=== PATIENT | male | born 2000 | race Caucasian/White ===

== ENCOUNTER 2019-03-09 17:17 | Emergency (ER) | payer BC, OTHER ==
[2019-03-09 17:58] VITALS: BP 132/81; PULSE 81; TEMP 97.6; BMI 22.4
[2019-03-09] MEDS ORDERED: AZITHROMYCIN 500 MG TABLET PO ONE (19:40)
[2019-03-09] MEDS ORDERED: AZITHROMYCIN 250 MG TABLET ONE (19:44)
--- NOTE | 2019-03-09 22:10 | PDOC ---
Documentation entered by Maddison Weinstein SCRIBE, acting as scribe for April Aguilar MD. April Aguilar MD: This documentation has been prepared by the daisyibe, Maddison Weinstein SCRIBE, under my direction and personally reviewed by me in its entirety. I confirm that the documentation accurately reflects all work, treatment, procedures, and medical decision making performed by me. History of Present Illness - General Chief Complaint: Non EmpBld/Body Flud Exposure Stated Complaint: "I need to be tested for STD" Time Seen by Provider: 03/09/19 19:18 History Source: Patient Exam Limitations: No Limitations - History of Present Illness Initial Comments: 03/09/19 20:06 The patient is a 18-year-old male with a past medical history significant for chlamydia who presents to the emergency department for STD testing. The patient reports he received an anonymous text today to get checked out for STDs. The patient denies any rashes, penile discharge/bleeding, joint or muscle pain, urinary frequency or urgency, dysuria, hematuria. The patient reports a recent history of chlamydia in August, was treated for it. The patient reports he has had multiple female sexual partners since August, and reports he uses a condomless than half of the time. Allergies: NKDA Social history: Marijuana use and alcohol use. Past History - Past Medical History Allergies/Adverse Reactions: Allergies Allergy/AdvReac Type Severity Reaction Status Date / Time No Known Allergies Allergy Verified 03/09/19 17:50 Home Medications: Ambulatory Orders NK [No Known Home Medication] 03/09/19 COPD: No Other medical history: denies - Psycho Social/Smoking Cessation Hx Smoking History: Never smoked Hx Alcohol Use: Yes (two times per week.) Drug/Substance Use Hx: Yes (MARIJUA) Review of Systems - Review of Systems Able to Perform ROS?: Yes Comments:: 03/09/19 20:06 Constitutional - Pt denies Fever, Chills, weakness, HEENT: denies vision changes, sore throat Respiratory: Denies cough, sob, hemoptysis Cardiac: denies chest pain, palpitations, lightheadedness, leg swelling Abd/GI: denies abd pain, nausea, vomiting, blood per rectum, melena, diarrhea : +denies penile discharge or bleeding. denies dysuria, frequency, urgency. Musculoskeletal - denies back pain, joint pain or swelling, muscle pain. skin - denies bruising, erythema, rash neurological: denies headache, numbness, focal weakness, tingling, ataxia, weakness hematologic: denies anemia, easy bruising, easy bleeding *Physical Exam - Vital Signs Last Vital Signs Temp Pulse Resp BP Pulse Ox 97.6 F 81 18 132/81 98 03/09/19 17:20 03/09/19 17:20 03/09/19 17:20 03/09/19 17:20 03/09/19 17:20 - Physical Exam 03/09/19 20:07 GENERAL: Awake, alert and oriented. The patient is in no acute distress. ENT: Ears normal, nares patent, oropharynx clear without exudates. Moist mucous membranes. NECK: Normal range of motion, supple, no nuchal rigidity LUNGS: Breath sounds equal, clear to auscultation bilaterally. No wheezes, and no crackles. HEART: Regular rate and rhythm, normal S1 and S2 without murmur, rub or gallop. ABDOMEN: Soft, nontender, normoactive bowel sounds. No guarding, no rebound. No masses palpable. EXTREMITIES: Normal range of motion, no edema. NEUROLOGICAL: Answering all questions. Cranial nerves II through XII grossly intact. Normal speech. No focal neurological deficits. SKIN: Warm, Dry, normal turgor, no rashes or lesions noted. ED Treatment Course - Medications Given in the ED: ED Medications Discontinued Medications Generic Name Dose Route Start Last Admin Trade Name Freq PRN Reason Stop Dose Admin Azithromycin 1,000 mg 03/09/19 19:40 03/09/19 19:51 Zithromax PO 03/09/19 19:41 1,000 mg ONCE ONE Administration Ceftriaxone Sodium 250 mg 03/09/19 19:40 03/09/19 19:51 Rocephin - IM 03/09/19 19:41 250 mg ONCE ONE Administration Medical Decision Making - Medical Decision Making 03/09/19 19:52 Raman is a 18 yo M who presents to the ER for STD testing He received an anononymous text message stating that he should be tested for STDs Pt has previously had chlamydia Pt denies dysuria, hematuria, penile discharge, penile lesions No fevers or chills Pt believes that he may have chlamydia because his friend slept with the same lady and he has chlamydia Will do: GC/Chlamydia Given high risk of STD, will treat with Ceftriaxone and Azithromycin Will also do HIV and RPR 03/09/19 22:35 Pt labs are all still pending Discharge - Discharge Information Problems reviewed: Yes Clinical Impression/Diagnosis: STD exposure Condition: Stable Disposition: HOME - Admission No - Follow up/Referral - Patient Discharge Instructions Patient Printed Discharge Instructions: Facts About Sexually Transmitted Infections Additional Instructions: Thank you for coming in to the ER today We will call you if your STD testing is positive (if you have any questions, you can also call us at [phone]) Please practice safe sexual interactions Please avoid unprotected sexual interactions until we know about your STD testing Please also alert your sexual partners if you are positive for any of the STD testing Please return to the ER for any other concerns or complaints - Post Discharge Activity Work/Back to School Note: Back to Work
== END 2019-03-09 20:20 | disposition home or self-care (01) ==
LOC: FER 17:17
DX: Z20.2 Contact with and (suspected) exposure to infections with a predominantly sexual mode of transmission (principal); Z87.438 Personal history of other diseases of male genital organs
CPT/HCPCS: 36415; 86593; 87389; 87491; 87591; 99282-25